=== PATIENT | male | born 1980 | race Two or more races ===

== ENCOUNTER 2025-05-24 09:17 | Emergency (ER) | payer MEDICAID, SELFPAY ==
[~2025-05-24] VITALS: Ht 177.8 cm; Wt 79.8 kg
[~2025-05-24 09:17] MED LIST: MECL25CH85 PO
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
[2025-05-24] MEDS ORDERED: ACETAMINOPHEN 325 MG TAB PO ONE (11:11)
[2025-05-24] MEDS ORDERED: KETOROLAC TROMETH 30 MG/ML 1ML VIAL ONE (11:11)
[2025-05-24] MEDS: KETOROLAC TROMETH 30 MG/ML 1ML VIAL IM ONE (11:18)
[2025-05-24] MEDS: ACETAMINOPHEN 325 MG TAB PO ONE (11:18)
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
[2025-05-24 12:11] VITALS: BP 123/85; PULSE 75; RESP 16; TEMP 97.9; O2SAT 100
[2025-05-24] MEDS ORDERED: CYCL-839 PO (12:33)
[2025-05-24] MEDS ORDERED: LIDO5DIS21 TOP (12:33)
== END 2025-05-24 13:08 | disposition home or self-care (01) ==
LOC: ER 09:17
DX: S32.020A Wedge compression fracture of second lumbar vertebra, initial encounter for closed fracture (principal); M54.50 Low back pain, unspecified; Z90.89 Acquired absence of other organs; F17.210 Nicotine dependence, cigarettes, uncomplicated; V89.2XXA Person injured in unspecified motor-vehicle accident, traffic, initial encounter; Y93.89 Activity, other specified; Y92.410 Unspecified street and highway as the place of occurrence of the external cause; Y99.8 Other external cause status
CPT/HCPCS: 72100; 96372; 99283; J1885